=== PATIENT | female | born 1970 | race Caucasian/White ===

== ENCOUNTER → 2016-12-14 | Outpatient (REF) ==
--- NOTE | 2016-12-15 03:30 | REP ---
Clinical: Pain and disability. Technique: AP, lateral, open mouth views of the cervical spine. Comparison: 10/28/2005. Findings: Alignment and lordosis maintained. No acute fracture / compression injury or subluxation. Open mouth view demonstrates normal C1-C2 articulation and odontoid process. Lateral view demonstrates moderate multilevel degenerative changes including anterior spurring with endplate sclerosis and minimal disc space narrowing. Findings are most pronounced at C5-6. Impression: Moderate multilevel degenerative changes. Signed by Jeremiah Frank MD 12/15/2016 03:22 A
== END ==
LOC: M SMT 14:00
PROVIDERS: ATTEND Internal Medicine
DX: M50.30 Other cervical disc degeneration, unspecified cervical region (principal)

== ENCOUNTER → 2022-06-16 | Outpatient (REF) | LOC: M PLAIMG 15:06 | PROVIDERS: ATTEND Internal Medicine | DX: M47.812 Spondylosis without myelopathy or radiculopathy, cervical region (principal) ==